=== PATIENT | female | born 1970 | race Hispanic/Latino ===

== ENCOUNTER 2022-06-28 07:20 | Emergency (ER) | payer MEDICARE ==
[~2022-06-28] VITALS: Ht 167.6 cm; Wt 789.3 kg
[2022-06-28] MEDS ORDERED: IBUP-1493 PO (09:58)
[2022-06-28 10:00] VITALS: BP 115/85
[2022-06-28] MEDS ORDERED: IBUPROFEN 800 MG TAB ONE (10:09)
== END 2022-06-28 10:25 | disposition home or self-care (01) ==
LOC: EDH 07:20 → EDBD 07:20 → EDH 10:25
DX: S42.032A Displaced fracture of lateral end of left clavicle, initial encounter for closed fracture (principal); M19.90 Unspecified osteoarthritis, unspecified site; F32.A Depression, unspecified; I10 Essential (primary) hypertension; M32.9 Systemic lupus erythematosus, unspecified; M79.7 Fibromyalgia; Z88.6 Allergy status to analgesic agent; Z88.5 Allergy status to narcotic agent; W19.XXXA Unspecified fall, initial encounter; Y93.02 Activity, running; Y92.89 Other specified places as the place of occurrence of the external cause; Y99.8 Other external cause status
CPT/HCPCS: 71046; 71100; 72125; 72170; 73030; 73090; 73130; 73552; 73562